=== PATIENT | female | born 1960 | race Caucasian/White ===

== ENCOUNTER → 2017-02-14 | Emergency (ER) | payer OTHER ==
[~2017-02-14] VITALS: Ht 165.1 cm; Wt 45.4 kg
[~2017-02-14] MED LIST: ADVIL100 M1; OXYCODONE HCL E60 MG; SKELAXIN800 MG
== END | disposition home or self-care (01) ==
LOC: ER 19:01
DX: S33.5XXA Sprain of ligaments of lumbar spine, initial encounter (principal); X50.0XXA Overexertion from strenuous movement or load, initial encounter; Y93.B2 Activity, push-ups, pull-ups, sit-ups; Y92.810 Car as the place of occurrence of the external cause; Y99.8 Other external cause status

== ENCOUNTER 2017-02-17 13:30 | Emergency (ER) | payer OTHER ==
[~2017-02-17] VITALS: Ht 165.1 cm; Wt 45.4 kg
== END 2017-02-17 18:11 | disposition home or self-care (01) ==
LOC: ER 13:30
DX: M51.16 Intervertebral disc disorders with radiculopathy, lumbar region (principal)